=== PATIENT | male | born 1950 | race Caucasian/White ===

== ENCOUNTER 2020-03-24 21:32 | Inpatient (IN) | payer MEDICARE, OTHER, SELFPAY ==
[2020-03-24] VITALS (10 sets, daily range): BP systolic 160–231; BP diastolic 74–130; PULSE 74–112; RESP 17–37; TEMP 36.8; O2SAT 93–100; BMI 26.9
--- NOTE | 2020-03-24 21:44 | ED_ITS ---
HPI - Neuro Symptoms/Deficit General Chief Complaint: Neuro Symptoms/Deficit Stated Complaint: thinks he had a stroke Time Seen by Provider: 03/24/20 21:34 Source: patient and family Mode of arrival: Ambulatory Limitations: no limitations History of Present Illness HPI Narrative: 69M former smoker with history of HTN presents with his and the chief complaint of stroke-like symptoms that started night. He had been in his normal state of health while traveling with his family who noted him to be a bit confused and perhaps dizzy on night. Upon waking on Thursday heaves found to have significant right facial weakness with associated slurring of his words, right arm and right leg weakness. He denies any injury nor history of the same. He denies any fever or chills. Onset (ago): day(s) Timing confirmed by: family member Location: speech, right face, dysarthria, right arm and right leg History of same: No Severity: moderate Quality: weak and constant Relieving factors: none Exacerbating factors: none On Anticoagulants: No Associated symptoms: denies other symptoms Treatments Prior to Arrival: none Related Data Allergies Allergy/AdvReac Type Severity Reaction Status Date / Time No Known Drug Allergies Allergy Verified 03/24/20 22:10 Review of Systems Constitutional Constitutional: Denies chills, Denies fatigue, Denies fever(s), Denies frequent falls, Denies lethargy and Reports weakness Eyes Eyes: Denies change in vision, Denies eye discharge, Denies irritation and Denies loss of vision ENT Ears, Nose, Mouth, and Throat: Denies change in voice, Denies dizziness, Denies neck pain, Denies sore throat and Denies throat swelling Cardiovascular Cardiovascular: Denies chest pain, Denies irregular heart rhythm, Denies lightheadedness, Denies palpitations, Denies dyspnea, Denies dyspnea on exertion and Denies orthopnea Respiratory Respiratory: Denies cough, Denies dyspnea, Denies dyspnea on exertion and Denies wheezing Gastrointestinal Gastrointestinal: Denies abdominal pain, Denies change in bowel habits, Denies diarrhea, Denies nausea and Denies vomiting Musculoskeletal Musculoskeletal: Reports abnormal gait, Denies neck pain and Denies numbness Integumentary/Breasts Skin/Breast: Denies pruritus, Denies erythema, Denies rash and Denies wounds Neurologic Neurologic: Reports abnormal speech, Reports abnormal gait, Denies behavioral changes, Denies confusion, Denies dizziness, Denies frequent falls, Denies loss of vision, Denies numbness and Reports weakness Psychiatric Psychiatric: Denies anxiety, Denies behavioral changes, Denies confusion, Denies depression, Denies homicidal ideation and Denies suicidal ideation Endocrine Endocrine: Denies fatigue, Denies flushing and Denies palpitations Hematologic/Lymphatic Hematologic/Lymphatic: Denies easy bruising Allergic/Immunologic Allergic/Immunologic: Denies urticaria, Denies throat swelling and Denies wheezing Patient History Social History Smoking Status: Former smoker Smoking Status: Former smoker alcohol intake frequency: 0-2 drinks per day Substance Use Type: does not use Exam Narrative Exam Narrative: GENERAL: [69] year old patient appears stated age. Well- nourished, well-developed patient, in mild distress. HEAD: Atraumatic. Normocephalic. EYES: Pupils equal round and reactive. Extraocular motions intact. No scleral icterus. No injection or drainage. ENT: Nose without bleeding, purulent drainage. Throat without erythema, tonsillar hypertrophy or exudate. Airway patent. NECK: Trachea midline. Non tender CARDIOVASCULAR: Regular rate and rhythm without murmurs, gallops, or rubs. RESPIRATORY: Clear to auscultation. Breath sounds equal bilaterally. No wheezes, rales, or rhonchi. GASTROINTESTINAL: Abdomen soft, non-tender, nondistended. EXTREMITIES: No edema or joint tenderness. BACK: Nontender without deformity or crepitance. No flank tenderness. NEURO: AOx3. SKIN: No rash or erythema of visible areas Initial Vital Signs Initial Vital Signs: Vital Signs Temperature 98.2 F 03/24/20 21:40 Pulse Rate 89 03/24/20 21:40 Respiratory Rate 17 03/24/20 21:40 Blood Pressure 178/84 H 03/24/20 21:40 Pulse Oximetry 100 03/24/20 21:40 Scores NIH Stroke Scale Level of Conciousness: Alert, keenly responsive Ask month/age: Answers one question correctly, intubated follow commands Open/close eyes, close hand: Performs both tasks correctly Best gaze horizontal: Normal Visual sethi: No visual loss Facial palsy: Partial paralysis, total or near total paralysis of lower face Left arm drift: No drift for full 10 sec Right arm drift: Drifts down, not to bed Left leg drift: No drift for full 10 sec Right leg drift: Drifts down, not to bed Limb ataxia: Absent Sensory on face/arms/legs: Normal, no sensory loss Best language: Mild to moderate, slurs some words Dysarthria: Mild to mod,some slurring Extinction or inattention: No abnormality Total NIH Stroke scale score: 7 Course Orders Ordered: ED Orders 03/24/20 21:42 CT head/brain wo con Stat Basic Metabolic Panel Stat Complete Blood Count AUTO DIFF Stat Partial Thromboplastin Time Stat Prothrombin Time INR Stat Urine Drug Screen, Rapid Stat EKG-12 Lead Stat 03/24/20 21:51 Consult to Speech Therapy Evaluate & Treat 03/24/20 22:00 COVID19 -ED/INPAT/OR/L&D Stat Sodium Chloride (Normal Saline 0.9%) 1,000 mls @ 150 mls/hr IV CONT HECTOR Last Admin: 03/24/20 21:57 Dose: 150 mls/hr Documented by: MIRTHA Vital Signs Vital signs: Vital Signs - 8 hr 03/24/20 21:40 Temperature 98.2 F Pulse Rate 89 Respiratory Rate 17 Blood Pressure 178/84 H Pulse Oximetry 100 MDM - Neuro Symptoms/Deficit Lab Data Result diagrams: 03/24/20 21:42 03/24/20 21:42 Labs: Lab Results 03/24/20 03/24/20 03/24/20 Range/Units 21:42 21:42 21:42 WBC 9.9 (4.5-11.0) X10^3/uL RBC 4.98 (4.5-5.9) X10^6/uL Hgb 16.0 (13.5-17.5) g/dL Hct 47.0 (41-53) % MCV 94.3 (80-100) fL MCH 32.2 (26-34) PG MCHC 34.2 (30-36) % RDW 13.4 (11.6-14.8) % Plt Count 281 (150-400) X10^3/uL Neut % (Auto) 55.4 (50-75) % Lymph % (Auto) 35.8 (25-40) % [place] % (Auto) 7.1 (3-14) % Eos % (Auto) 1.1 L (2-4) % Baso % (Auto) 0.6 (0-2) % Neut # (Auto) 5500 (7609-3580) /uL Lymph # (Auto) 3500 (4731-9051) /uL [place] # (Auto) 700 (0-900) /uL Eos # (Auto) 100 (0-450) /uL Baso # (Auto) 100 (0-100) /uL PT 10.9 (10.1-12.7) SECONDS INR 1.0 (0.9-1.3) APTT 30 (26.4-36.2) SECONDS Sodium 137 (137-145) mmol/L Potassium 3.9 (3.4-5.1) mmol/L Chloride 102 (98-107) mmol/L Carbon Dioxide 30 (22-32) mmol/L BUN 22 H (9-20) mg/dL Creatinine 1.27 H (0.66-1.25) mg/dL Estimated GFR 56.2 L (>60) mL/min BUN/Creatinine Ratio 17.3 (6-22) Glucose 117 H (80-110) mg/dL Calcium 9.4 (8.4-10.2) mg/dL COVID-19 PCR (Negative) 03/24/20 Range/Units 22:00 WBC (4.5-11.0) X10^3/uL RBC (4.5-5.9) X10^6/uL Hgb (13.5-17.5) g/dL Hct (41-53) % MCV (80-100) fL MCH (26-34) PG MCHC (30-36) % RDW (11.6-14.8) % Plt Count (150-400) X10^3/uL Neut % (Auto) (50-75) % Lymph % (Auto) (25-40) % [place] % (Auto) (3-14) % Eos % (Auto) (2-4) % Baso % (Auto) (0-2) % Neut # (Auto) (3048-9169) /uL Lymph # (Auto) (7514-0114) /uL [place] # (Auto) (0-900) /uL Eos # (Auto) (0-450) /uL Baso # (Auto) (0-100) /uL PT (10.1-12.7) SECONDS INR (0.9-1.3) APTT (26.4-36.2) SECONDS Sodium (137-145) mmol/L Potassium (3.4-5.1) mmol/L Chloride (98-107) mmol/L Carbon Dioxide (22-32) mmol/L BUN (9-20) mg/dL Creatinine (0.66-1.25) mg/dL Estimated GFR (>60) mL/min BUN/Creatinine Ratio (6-22) Glucose (80-110) mg/dL Calcium (8.4-10.2) mg/dL COVID-19 PCR Negative (Negative) Imaging Data CT scan - head: Radiologist's Impression: Coleman Rios 69 M 1950 [address] [address] [address] Scan Report Signed Patient: Coleman Rios SMR#: [id number] : [id number]:[id number] Age/Sex: 69 / MDate of Service: 03/24/20 Loc: ED Accession Number: [id number] Procedure: CT head/brain wo con Ordering Provider: Surinder Barajas D.O. PROCEDURE: CT HEAD/BRAIN WO CON INDICATIONS: stroke, outside TPA window. R face, R arm, R leg TECHNIQUE: Noncontrast 4.5 mm thick angled axial sections acquired from the foramen magnum to the vertex, with coronal and sagittal reformats. For radiation dose reduction, the following was used: automated exposure control, adjustment of mA and/or kV according to patient size. COMPARISON: None. FINDINGS: Image quality: Excellent. CSF spaces: Basal cisterns are patent. No extra-axial fluid collections. The ventricles are symmetric in size and shape. Brain: No intracranial bleeds or masses. There is cerebral volume loss for age, with resultant ventricular and sulcal prominence. There are periventricular and deep white matter chronic small vessel ischemic changes. Remote lacunar infarcts can be seen involving the deep white matter on both sides. There is intracranial internal carotid artery atherosclerosis. Skull and face: Calvarium and visualized facial bones appear intact, without suspicious lesions. Sinuses: Visualized sinuses and mastoids are clear. IMPRESSION: No acute intracranial hemorrhage is seen. No acute intracranial process is seen. Remote bilateral lacunar infarcts are seen. Note: No significant discrepancy from the preliminary report. Dictated by: Xavier Blount M.D. on 03/24/2020 at 21:30 Approved by: Xavier Blount M.D. on 03/24/2020 at 21:31 Discharge Plan Departure Patient Disposition: Admitted as Observation Clinical Impression: Cerebrovascular accident Qualifiers: CVA mechanism: unspecified Qualified Code(s): I63.9 - Cerebral infarction, unspecified
[2020-03-24 21:53] LABS: Add Manual Diff / Slide Review NO; Basophils Absolute Auto 100 /uL (0-100); Basophils Percent Auto 0.6 % (0-2); Eosinophils Absolute Auto 100 /uL (0-450); Eosinophils Percent Auto 1.1 % (2-4); Lymphocytes Absolute Auto 3500 /uL (1100-4500); Lymphocytes Percent Auto 35.8 % (25-40); Mean Corpuscular HGB Conc 34.2 % (30-36); Mean Corpuscular Hemoglobin 32.2 PG (26-34); Mean Corpuscular Volume 94.3 fL (80-100); Monocytes Absolute Auto 700 /uL (0-900); Monocytes Percent Auto 7.1 % (3-14); Neutrophils Absolute Auto 5500 /uL (1500-7000); Neutrophils Percent Auto 55.4 % (50-75); Platelet Count 281 X10^3/uL (150-400); Red Blood Cell Count 4.98 X10^6/uL (4.5-5.9); Red Cell Distribution Width 13.4 % (11.6-14.8); White Blood Cell Count 9.9 X10^3/uL (4.5-11.0)
[2020-03-24] MEDS: SODIUM CHLORIDE 0.9% 1,000 ML 150 ML IV (21:57)
[2020-03-24 22:01] LABS: Prothrombin Time 10.9 SECONDS (10.1-12.7)
[2020-03-24 22:03] LABS: PTT Partial Thromboplastin Tim 30 SECONDS (26.4-36.2)
[2020-03-24 22:05] LABS: BUN Creatinine Ratio 17.3 (6-22); Blood Urea Nitrogen 22 mg/dL (9-20); Calcium 9.4 mg/dL (8.4-10.2); Carbon Dioxide 30 mmol/L (22-32); Chloride 102 mmol/L (98-107); Estimated Glomerular Filt Rate 56.2 mL/min (>60); Glucose 117 mg/dL (80-110); HEMOLYSIS 40 (0-50); Potassium 3.9 mmol/L (3.4-5.1); Sodium 137 mmol/L (137-145)
[2020-03-24 22:30] LABS: COVID19 -Nasal RAPID Negative (Negative)
[2020-03-25] VITALS (9 sets, daily range): BP systolic 144–197; BP diastolic 70–104; PULSE 66–79; RESP 16–24; TEMP 36.2–36.9; O2SAT 93–98; BMI 26.9
--- NOTE | 2020-03-25 01:55 | DI.MRI.S_ITS ---
PROCEDURE: MR STROKE Pre- and post-contrast brain MRI, non-contrast brain MR angiogram, pre- and postcontrast neck MR angiogram INDICATIONS: CVA TECHNIQUE: Brain: Noncontrast axial T1 spin echo, axial T2 fast spin echo, sagittal and axial FLAIR, coronal T2 fast spin echo, axial gradient echo, axial diffusion and ADC through the brain. After the administration of contrast, axial 3D VIBE of the cranial vasculature and brain. Brain MRA: Non-contrast 3-D time of flight MR angiogram, with multiple kfriekh-qemzozlzt-qvojwindry (MIP) reformats performed. Neck MRA: Axial and sagittal TruFISP through the neck. Coronal dynamic MR angiogram during administration of contrast in the arterial and venous phases, with 3-dimenstional jabwjqg-zbnxkcfgi-mcmzynwanl (MIP) reformats constructed from subtraction images. COMPARISON: [facility], CT, CT HEAD/BRAIN WO CON, 03/24/2020, 21:47. FINDINGS: Image quality: Excellent. BRAIN: CSF spaces: Ventricles are normal in size and shape. Basal cisterns are patent. No extra-axial fluid collections. Brain: There is abnormal diffusion weighted hyperintensity seen along the lateral aspect of the left thalamus, as on series 27, image 62, which measures 7 mm. There is associated dark signal seen on the ADC map, as on series 28, image 12. No superimposed hemorrhage is seen. Brain parenchymal volume loss is seen. Moderate to prominent chronic small-cell ischemic changes are seen. Areas of prior lacunar infarctions can be seen. No intracranial bleeds or mass effects. Smith-white matter interface is normal. Brainstem appears normal. Normal intravascular flow voids are present. No abnormal intracranial enhancement. Relatively prominent perivascular spaces are noted. Skull and face: Calvarial marrow signal is normal. Orbits appear normal. Note is made of bilateral lens replacements. Sinuses: Sinuses and mastoids are clear. Mild leftward nasal septal deviation is seen. BRAIN MR ANGIOGRAM: Anterior circulation: Intracranial internal carotid arteries are normal in size and enhancement. The flow within the paired anterior cerebral arteries is normal and symmetric. The flow within the middle cerebral arteries is normal and symmetric. The anterior communicating artery is seen. No stenoses, occlusions, or aneurysms. Posterior circulation: The visualized portions of the vertebral arteries demonstrate normal caliber, and join to form a normal appearing basilar artery. The flow within the posterior cerebral arteries is normal and symmetric. The right V4 segment demonstrates signal dropout. However, this area appears within normal limits on the accompanying contrast enhanced MRI angiogram of the neck through the region. No definite stenoses, occlusions, or aneurysms. NECK MR ANGIOGRAM: Carotids: Great vessels demonstrate a conventional anatomy as they arise from the aortic arch. The origins of the common carotid arteries appear patent. The calibers and courses of both common carotid arteries are normal. The bifurcation regions appear normal bilaterally. The internal carotid arteries demonstrate normal course and caliber. Posterior circulation: The origins of the vertebral arteries are irregular and demonstrate approximately 50% narrowing on each side. More superior portions of both vertebral arteries demonstrate normal course and caliber, and join to form a normal appearing basilar artery. Miscellaneous: Subclavian arteries appear patent. Pre-contrast images through the neck show no soft tissue abnormalities. IMPRESSION: BRAIN MRI: There is a 7 mm acute infarction seen involving the lateral aspect of the left thalamus. Note is made of age-appropriate brain parenchymal volume loss and chronic small vessel ischemic changes. Areas of prior lacunar infarctions can be seen. No masses or abnormal enhancement can be seen. BRAIN MR ANGIOGRAM: No significant intracranial arterial abnormality is seen. NECK MR ANGIOGRAM: Approximately 50% narrowing can be seen involving the origins of the vertebral arteries. No additional significant narrowing can be seen within the arteries of the neck. Dictated by: Xavier Blount M.D. on 03/25/2020 at 8:37 Approved by: Xavier Blount M.D. on 03/25/2020 at 8:45
[2020-03-25 02:37] LABS: Hemoglobin A1C% w Est Avg Glu 5.4 % (4.0-6.0)
--- NOTE | 2020-03-25 02:54 | P.HP_ITS ---
History of Present Illness History of Present Illness Date Patient Seen: 03/25/20 Time Patient Seen: 00:30 Date of Onset of Symptoms: 03/22/20 Chief complaint: thinks he had a stroke Narrative: Coleman Rios is a 69-year-old male resident from [facility] with hypertension and hyperlipidemia who was traveling with his and appears that they may have traveled separately. On he arrived and told her that he was feeling dizzy and weak. On Thursday they both noticed that he was unsteady on his feet as well as having speech difficulties. And then on the day that they showed up to the ED he developed right sided arm weakness and numbness. When he was in the emergency department after going through the CT scanner he and his stated that his symptoms started to resolve. Healing now complains of pain and muscle tightness in his right shoulder, difficulty speaking, and being hungry and thirsty. He denies shortness of breath, chest pain, he does endorse having difficulty swallowing all in at this point, denies nausea or vomiting, abdominal pain, dysuria, diarrhea or constipation He is anxious to go home. The patient goes to [facility] in [facility] and sees Dr. Javier. CT of the head indicated remote bilateral lacunar infarcts. The patient's tonight scale was 7 at time of presentation and he was outside of the window anti thrombolytic intervention. He was hypertensive with a blood pressure being as high as 231/130 and currently it is 163/89. He is febrile, heart rate is 71, respiratory rate 16, oxygen saturation 90% on room air, is 72.3 kg with a BMI of 25. CBC within normal limits, sodium 137 potassium of 22 Na estimated GFR 56.2, glucose is 117 on was A1c is 5.4. Calcium is 9.4 magnesium 2.0 and he has COVID-19 negative. Patient History Medical History Essential hypertension (Acute) Hyperlipidemia (Acute) Sequela of lacunar infarction (Acute) Family & Social History Family History Father Myocardial infarction Mother CVA (cerebral vascular accident) Safety & Behavioral: Feels Safe in Current Yes Environment Tobacco & Substance use: Smoking Status Current every day smoker 1 pack per day alcohol intake current alcohol intake frequency several beers per day Substance Use Type does not use Meds Home Medications and Allergies Home Medications Medication Instructions Recorded Confirmed Type albuterol sulfate 2 puff INHALATION QID PRN 03/25/20 03/25/20 History allopurinol 400 mg PO DAILY 03/25/20 03/25/20 History atorvastatin 20 mg PO DAILY 03/25/20 03/25/20 History lisinopril 10 mg PO DAILY 03/25/20 03/25/20 History pantoprazole 40 mg PO DAILY 03/25/20 03/25/20 History umeclidinium [Incruse Ellipta] 1 inh INHALATION DAILY 03/25/20 03/25/20 History Allergies Allergy/AdvReac Type Severity Reaction Status Date / Time No Known Drug Allergies Allergy Verified 03/24/20 22:10 Review of Systems Review of Systems ROS: Yes All systems reviewed with the patient and are negative except as otherwise documented Exam Vital Signs (past 8 hours): - 03/24/20 21:37 03/24/20 21:38 03/24/20 21:40 Temperature 98.2 F Pulse Rate 101 H 103 H 89 Respiratory Rate 17 Blood Pressure 178/89 H 178/84 H Pulse Oximetry 97 97 100 03/24/20 22:00 03/24/20 22:01 03/24/20 22:30 Temperature Pulse Rate 91 H 93 H 86 Respiratory Rate 18 20 24 Blood Pressure 176/92 H 173/84 H Pulse Oximetry 97 98 95 03/24/20 23:00 03/24/20 23:01 03/24/20 23:30 Temperature Pulse Rate 112 H 108 H 75 Respiratory Rate 37 H 32 H 19 Blood Pressure 231/130 H Pulse Oximetry 95 95 93 03/24/20 23:31 03/25/20 00:00 03/25/20 00:30 Temperature Pulse Rate 74 73 76 Respiratory Rate 19 18 24 Blood Pressure 160/74 H 164/77 H 194/90 H Pulse Oximetry 95 93 95 03/25/20 01:00 03/25/20 02:16 Temperature 97.2 F L Pulse Rate 73 71 Respiratory Rate 20 16 Blood Pressure 197/104 H 163/89 H Pulse Oximetry 96 98 Oxygen Delivery Method Room Air Oxygen Flow Rate 0 Narrative Exam Narrative: Gen: Alert, oriented, well-developed 69 y.o. male, a bit restless HEENT: normocephalic, atraumatic, conjunctiva clear, sclera non-icteric, oral mucosa pink and moist Neck: supple, full ROM, no JVD, trachea is midline Resp: Lungs CTA, non-labored breathing CV: RRR, no murmur or rubs Abd: soft, non-tender, normoactive BTs Skin: no lesions or rashes, dry and intact Neuro: Alert and oriented X 4 very dysarthric, but speech is coherent NIH score of 7 Extremities: moves all 4 extremities, is ambulatory, negative Sandie?s sign Psyche: Is very funny and likes to joke, normal mood and affect. Objective Labs Result Diagrams: 03/24/20 21:42 03/24/20 21:42 Labs: Laboratory Results - last 24 hr 03/24/20 03/24/20 03/24/20 21:42 21:42 21:42 WBC 9.9 RBC 4.98 Hgb 16.0 Hct 47.0 MCV 94.3 MCH 32.2 MCHC 34.2 RDW 13.4 Plt Count 281 Neut % (Auto) 55.4 Lymph % (Auto) 35.8 [place] % (Auto) 7.1 Eos % (Auto) 1.1 L Baso % (Auto) 0.6 Neut # (Auto) 5500 Lymph # (Auto) 3500 [place] # (Auto) 700 Eos # (Auto) 100 Baso # (Auto) 100 PT 10.9 INR 1.0 APTT 30 Sodium 137 Potassium 3.9 Chloride 102 Carbon Dioxide 30 BUN 22 H Creatinine 1.27 H Estimated GFR 56.2 L BUN/Creatinine Ratio 17.3 Glucose 117 H Hemoglobin A1c Calcium 9.4 Magnesium COVID-19 PCR 03/24/20 03/24/20 03/24/20 21:42 21:42 22:00 WBC RBC Hgb Hct MCV MCH MCHC RDW Plt Count Neut % (Auto) Lymph % (Auto) [place] % (Auto) Eos % (Auto) Baso % (Auto) Neut # (Auto) Lymph # (Auto) [place] # (Auto) Eos # (Auto) Baso # (Auto) PT INR APTT Sodium Potassium Chloride Carbon Dioxide BUN Creatinine Estimated GFR BUN/Creatinine Ratio Glucose Hemoglobin A1c 5.4 Calcium Magnesium 2.0 COVID-19 PCR Negative Assessment & Plan Assessment & Plan narrative: Coleman Rios is a 69-year-old male who has sustained an acute CVA and is admitted to the inpatient service for further treatment and management. CVA, acute, present on admission -initiate clopidogrel 75 mg p.o. daily and aspirin 81 mg p.o. daily -MR stroke scheduled for today -Complete Echo for today Hypertension, acute with a bp of 231/130, now 163/89, present on admission -Allow for permissive hypertension of 220/110 HR 60 to allow for brain perfusion HLD -Lipid panel, pending -Atorvastatin 40 mg po at bedtime Risk stratification -A1c is 5.4% VTE prophylaxis: Caprini risk score: 7, High Heparin 5000 units bid Consults: none Patient is admitted under inpatient status with expected length of stay greater than 2 midnights due to severity of presenting symptoms, risk of adverse event, and complexity of treatment plan. FEN: , NS at 100 ml/hour, BMP and magnesium in the am. Dispo: Unknown at this tie Code Status: Full code as discussed with patient COVID-19 COVID-19 status: Negative Result date/Date tested (Pos, Neg/Pending): 03/25/20 Scores NIHSS Level of Conciousness: Alert, keenly responsive Ask month/age: Answers both questions correctly. Open/close eyes, close hand: Performs both tasks correctly Best gaze horizontal: Normal Visual sethi: No visual loss Facial palsy: Minor paralysis, flattened nasolabial fold, asymmetry on smiling Left arm drift: No drift for full 10 sec Right arm drift: Drifts down, not to bed Left leg drift: No drift for full 5 sec Right leg drift: Drifts down, not to bed Limb ataxia: Absent Sensory on face/arms/legs: Mild to moderate sensory loss, can tell touch Best language: Severe aphasia, not much is understood, fragmented Dysarthria: Mild to mod,some slurring Extinction or inattention: No abnormality Total NIH Stroke scale score: 7 Quality Stroke Contraindication Not Initiating IV-Tpa: Contraindicated Onset of Symptoms Date: 03/22/20 Symptom Onset Unknown: Yes Contraindication Antithromb by Day Two: Contraindicated Rehab Services Assessed: Rehabilitation therapy VTE Deep Vein Thrombosis/Pulmonary Embolism Present on Admission: No
[2020-03-25] MEDS: SODIUM CHLORIDE 0.9% 1,000 ML 150 ML IV (03:11)
[2020-03-25] MEDS: SODIUM CHLORIDE 0.9% 1,000 ML 100 ML IV ×3 (03:12→17:20)
[2020-03-25 03:23] LABS: Ur Creatinine Normal (Normal); Ur Specific Gravity Normal (Normal); Urine Tetrahydrocannabinol Negative (Negative); Urine pH Normal (Normal)
[2020-03-25 03:24] LABS: UR Morphine/Opiate cutoff 300 Positive (Negative); Urine Amphetamines Negative (Negative); Urine Barbiturates Negative (Negative); Urine Benzodiazepines Negative (Negative); Urine Cocaine Negative (Negative); Urine MDMA Negative (Negative); Urine Methadone Negative (Negative); Urine Methamphetamines Negative (Negative); Urine Oxycodone Negative (Negative); Urine Phencyclidine Negative (Negative); Urine Tricyclic Antidepressant Negative (Negative)
[2020-03-25 04:19] LABS: Troponin I < 0.012 ng/mL (0.01-0.034)
--- NOTE | 2020-03-25 04:24 | PC.NURSE ---
0130- Pt arrived to room 215 from ED via stretcher. A/O x4, at bedside. Confirmed CVA with right sided weakness to forearm and hand squeeze. When pt laughs or opens mouth wide, able to visualize slightly right sided facial droop, with pronounced slurred speech. NIH-3. UA sent to lab. Pt remains NPO until speech eval conducted. LS clear, BT+, Denies SOB nausea and pain at this time. , Catherine will be staying the night. LFA NS @ 150 infusing. 1PA FWW to toilet to void with urinal. Call light in reach and bed alarm on.
[2020-03-25 05:33] LABS: Add Manual Diff / Slide Review NO; Basophils Absolute Auto 100 /uL (0-100); Basophils Percent Auto 0.8 % (0-2); Eosinophils Absolute Auto 100 /uL (0-450); Eosinophils Percent Auto 1.8 % (2-4); Hematocrit 41.4 % (41-53); Lymphocytes Absolute Auto 2400 /uL (1100-4500); Lymphocytes Percent Auto 37.8 % (25-40); Mean Corpuscular HGB Conc 33.9 % (30-36); Mean Corpuscular Hemoglobin 31.9 PG (26-34); Mean Corpuscular Volume 93.9 fL (80-100); Monocytes Absolute Auto 500 /uL (0-900); Monocytes Percent Auto 7.2 % (3-14); Neutrophils Absolute Auto 3300 /uL (1500-7000); Neutrophils Percent Auto 52.4 % (50-75); Platelet Count 238 X10^3/uL (150-400); Red Blood Cell Count 4.41 X10^6/uL (4.5-5.9); Red Cell Distribution Width 13.7 % (11.6-14.8); White Blood Cell Count 6.3 X10^3/uL (4.5-11.0)
[2020-03-25 05:42] LABS: BUN Creatinine Ratio 18.2 (6-22); Blood Urea Nitrogen 18 mg/dL (9-20); Calcium 8.8 mg/dL (8.4-10.2); Carbon Dioxide 27 mmol/L (22-32); Chloride 107 mmol/L (98-107); Cholesterol 140 mg/dL (140-199); Estimated Glomerular Filt Rate > 60.0 mL/min (>60); Glucose 101 mg/dL (80-110); HDL Cholesterol 43 mg/dL (40-60); HEMOLYSIS < 15 (0-50); LDL Cholesterol Calculated 39 mg/dL (<100); Potassium 3.9 mmol/L (3.4-5.1); Sodium 138 mmol/L (137-145); Triglycerides 288 mg/dL (35-150)
[2020-03-25 05:51] LABS: NT-proBNP (BNP-Adult 18+) 102 pg/mL (<125)
[2020-03-25 06:41] LABS: Thyroid Stimulating Hormone 3.43 uIU/mL (0.47-4.68)
[2020-03-25] MEDS: lisinopriL 10 MG TABLET 20 MG PO (09:32)
[2020-03-25] MEDS: CLOPIDOGREL 75 MG TABLET PO (09:32)
[2020-03-25] MEDS: PANTOPRAZOLE 40 MG TABLET PO (09:32)
[2020-03-25] MEDS: ATORVASTATIN 20 MG TABLET 40 MG PO (09:32)
[2020-03-25] MEDS: ASPIRIN EC 81 MG TABLET PO (09:32)
[2020-03-25] MEDS: HEPARIN 5,000 UNIT/ML VIAL 5000 UNIT SUBCUT ×2 (09:33→20:39)
[2020-03-25 11:15] LABS: Troponin I < 0.012 ng/mL (0.01-0.034)
--- NOTE | 2020-03-25 11:39 | CM.DANOTE ---
DCP/Continued: Reviewed chart. Patient is a 69yr old male admitted [facility] with stroke like symptoms. Primary payor is 1)Medicare 2)Commercial Insurance. PCP is Dr. Javier in [place]. Met with patient this AM during provider rounds. Patient reports that he starting feeling dizzy and weak. Patient brought to ED where it was determined that he had CVA. Today, stroke work up in progress. Patient agreeable. Patient reports minor deficits with speech and facial expressions otherwise reports feeling okay. Therapy evaluations pending. Per provider, it is anticipated that patient will not d/c today. Patient agreeable to stay for w/u and plans to return home to [place] once he is discharged. Patient reports that he is not driving himself, family will be providing transport. Patient reports I prior to admit. History of tobacco dependence and medication non-compliance. P: Anticipate home when stable. If outpatient services needed patient would like to follow up in [place], [place]. TRIP [place] Discharge Planning/Care Management Advanced directive, confirm from FAMILY Start: 03/25/20 03:07 Freq: Q24H Status: Active Protocol: Document 03/25/20 03:07 MLA (Rec: 03/25/20 03:10 MLA [id number]) Advance Directive, confirm on record Time 03:10 Person contacted Catherine Huffman received No CM Discharge Assessment Start: 03/25/20 11:35 Freq: Status: Active Protocol: Document 03/25/20 11:35 KJS (Rec: 03/25/20 11:39 KJS [id number]) Discharge Planning Assessment Assigned Ware Dresser [place] Contact Information Catherine Rios (spouse) Advance Directives? No History Provided By Patient,Medical Record Has Patient been admitted in last 30 No days? Prior Living Arrangements House Household Members spouse Type of transporation used prior to Drives own vehicle admit Independent with ADL's Yes Is patient alert and oriented? Yes Caregiver for Another No Barriers to Discharge No Discharge Plan Home Transportation Arrangement Family to provide transport back to [place], [place]. once medically cleared. Whiteboard Updated in Patient Room with Yes name and ext. # of Ware Dresser Review Status In Process Next Review Type Continued Stay Review
--- NOTE | 2020-03-25 11:50 | PC.NURSE ---
Day Shift- Pt A&OX4, pt's Catherine at bedside and was rooming in overnight as they are from out of [facility]. NIH score is 4 during this RN's assessment for slurred speech, and mumbled. Right facial droop and slight drift down to right arm compared to left arm. Pt's Catherine states pt's speech is very slightly better today compared to yesterday. Pt to MRI at 0815 and back at 0915. Pt settled in chair in room, attempted breakfast but did not like the texture consistency of food. Pt did try a bite of cream of wheat and pureed egg. Pt also tolerated all of his honey thick orange juice without difficulty. Pt took his pills one at a time with the thickened juice without difficulty also. Per Dr. Marie, Calf SCD's not needed at this time, pt currently on aspirin, plavix, and heparin. Per Speech-Teresa, pt is to be reminded to double swallow with each swallow. 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 Pt appropriate, uses call light for assist. SBA to BR, slight unsteady gait with initial movement. Denies light-headed or dizziness.
--- NOTE | 2020-03-25 12:12 | DI.ECHO.S_ITS ---
Echocardiogram Report + + :Name: ENID LANDEROS Study Date: 03/25/2020 Height: 67 in : :[facility] Weight: 172 lb : : Gender: Male BSA: 1.9 m2 : :: 1950 Age: 69 yrs BP: 197/104 mmHg: :Reason For Study: CVA : :Ordering Physician: : :SARIKA GREENBERG Performed By: Yara Mendez : :Referring: RITA WYATTP : + + Interpretation Summary The patient was in sinus rhythm with heart rates between 70-76 bpm during the exam. BP: 197/104 mmHg The left ventricle is normal in size and wall thickness. The ejection fraction is estimated to be 60-65%. There is no obvious LV thrombus. The right ventricle is normal in size and function. There is mild tricuspid regurgitation. The right ventricular systolic pressure is estimated to be at least 27 mmHg based on an estimated right atrial pressure of 3 mm Hg. No significant atherosclerotic plaque in the aortic arch. Procedure: A two-dimensional transthoracic echocardiogram with color flow and Doppler was performed. The study quality was technically adequate. There is no prior echocardiogram noted for this patient. The patient was in sinus rhythm with heart rates between 70-76 bpm during the exam. Left Ventricle: The left ventricle is normal in size and wall thickness. There is no thrombus. The ejection fraction is estimated to be 60-65%. There are no focal wall motion abnormalities. Diastolic parameters suggest a relaxation abnormality of the left ventricle, consistent with probable normal filling pressures. Right Ventricle: The right ventricle is normal in size and function. Atria: Both atria are normal in size. There is no Doppler evidence for an interatrial shunt. Mitral Valve: The mitral valve leaflets are slightly calcified. There is trace mitral regurgitation. Aortic Valve: The aortic valve is trileaflet. The aortic valve opens well. There is no aortic valve stenosis. No aortic regurgitation is present. Tricuspid Valve: The tricuspid valve is normal. The right ventricular systolic pressure is estimated to be at least 27 mmHg based on an estimated right atrial pressure of 3 mm Hg. There is mild tricuspid regurgitation. Pulmonic Valve: The pulmonic valve is not well visualized. There is no pulmonic valvular regurgitation. Great Vessels: The aortic root is normal size. The dimensions of the ascending aorta are normal. No significant atherosclerotic plaque in the aortic arch. The IVC is of normal diameter and collapses greater than 50% with a sniff. This suggests a low right atrial pressure of 3 mm Hg. Pericardium/ Pleura There is no pericardial effusion. There is an anterior echo-free space consistent with a fat pad. There is no pleural effusion. MMode/2D Measurements & Calculations LVIDd: 5.0 cm LVOT diam: 2.0 cm LVIDs: 3.7 cm Ao root diam: 3.4 cm FS: 25.6 % Ao Arch Diam (Prox Trans): 2.7 cm EPSS: 1.1 cm IVSd: 0.93 cm LVPWd: 1.0 cm LV vazquez. diameter/BSA (cm/m^2): 2.6 LV sys. diameter/BSA (cm/m^2): 2.0 LA A2 area: 16.6 cm2 RA long axis: 4.5 cm LA A4 area: 14.0 cm2 RA area: 14.0 cm2 LA length (vol): 4.5 cm RA vol: 36.7 ml LA vol: 44.2 ml RA : 19.4 ml/m2 LA vol index: 23.3 ml/m2 IVC diam: 1.3 cm RVD1 (basal): 2.8 cm TAPSE: 2.3 cm Doppler Measurements & Calculations Ao V2 max: 118.1 cm/sec LVOT Max Joe: 90.4 cm/sec Ao V2 mean: 82.2 cm/sec LV V1 max P.3 mmHg Ao max P.6 mmHg LV V1 VTI: 21.0 cm Ao mean P.1 mmHg LENA(I,D): 2.5 cm2 Ao V2 VTI: 26.3 cm LENA(V,D): 2.4 cm2 sev ratio: 0.80 LENA indexed to BSA (cm^2/m^2): 1.3 MV E max joe: 63.9 cm/sec TR max joe: 246.0 cm/sec MV A max joe: 68.4 cm/sec TR max P.4 mmHg MV E/A: 0.93 PA pr(Accel): 32.8 mmHg Med Peak E' Joe: 6.7 cm/sec E/E' med: 9.5 Lat Peak E' Joe: 8.1 cm/sec E/E' lat: 7.9 E/e' average: 8.7 MV dec time: 0.22 sec SV(LVOT): 66.2 ml Reading Physician:01:54 PM
--- NOTE | 2020-03-25 12:18 | ST.IPIE ---
Visit Care Team Role Provider Type Surinder Barajas DO Emergency Provider Physician Referring Provider Specialty: Emergency Medicine Address: [address] [place] [address], [id number] Email: [email or web address] FRED Baron Admit Provider Physician Attending Provider Specialty: Internal Medicine Address: [address] [place] [address], [address] Email: [email or web address] Past Medical History (Last Reviewed 03/25/20 @ 03:08 by FRED Baron) Essential hypertension (Acute Medical) Hyperlipidemia (Acute Medical) Sequela of lacunar infarction (Acute Medical) ST IP Initial Evaluation Report IRRIGATING PUMP OPERATOR Clinical Swallow Evaluation Start: 03/25/20 11:56 Freq: Status: Active Protocol: Document 03/25/20 11:56 MG (Rec: 03/25/20 12:18 MG [id number]) Clinical Swallow Evaluation Session Time Visit Start Date 03/25/20 Visit Start Time 10:58 Visit Stop Time 11:47 Total Visit Minutes 59 Visit Information Visit Number 1 Setting Assessment Location Acute Care Visit Type Note Type Initial evaluation Next Note Type Next Note Type Treatment Note Patient Information Identification Type Name,Wristband History Coleman Rios is a 69-year- old male resident from [facility] with hypertension and hyperlipidemia who was traveling with his and appears that they may have traveled separately. On he arrived and told her that he was feeling dizzy and weak. On Thursday they both noticed that he was unsteady on his feet as well as having speech difficulties. And then on the day that they showed up to the ED he developed right sided arm weakness and numbness. When he was in the emergency department after going through the CT scanner he and his stated that his symptoms started to resolve. He now complains of pain and muscle tightness in his right shoulder, difficulty speaking, and being hungry and thirsty. He denies shortness of breath, chest pain, he does endorse having difficulty swallowing all in at this point, denies nausea or vomiting, abdominal pain, dysuria, diarrhea or constipation He is anxious to go home. CT of the head indicated remote bilateral lacunar infarcts. The patient 's tonight scale was 7 at time of presentation and he was outside of the window anti thrombolytic intervention. Tobacco dependence of one pack per day, chronic, present on admission -patient has not smoked since one day ago, but remains an active smoker -He was counseled on quitting smoking Medication non-compliance -Patient reportedly had not taken his regular blood pressure and statin medications as he was feeling too poorly to take them -Counseled of the importance of taking medications to avoid a more severe stroke in the future. Hx of a bilatera lacunar infarct -requesting records from his PCP Subjective Observations Pt was seen resting in bed upon IRRIGATING PUMP OPERATOR entry. Pt was agreeable to ST evaluation. Noticable slurred speech and R facial droop seen. Speech at times is unintelligible. When pt is prompted to repeat information, he does with more intelligibility. Pt is currently on honey thick liquids with puree solids. Pt reported he does not like his diet. Per nurse, pt did not consume much of his breakfast. Reported by Patient Current Diet Pureed,Honey thick liquids Baseline Feeding Method Independent in self-feeding Objective Assessment Mental Status Alert,Responsive,Cooperative Oral Integrity WFL Dentition Decay Lip Function Moderate impairment Observation of Lips at Rest Right sided weakness/Drooping Pucker Reduced strength,Right sided weakness/drooping Lip Retraction Reduced range of motion,Right sided weakness/Drooping Alternating Pucker/Lip Retraction Incoordination Tongue Function Moderate impairment Observations of Tongue at Rest Within normal limits Tongue Protrusion Reduced range of motion Tongue Retraction Reduced range of motion, Reduced strength Tongue Lateralization Reduced range of motion, Reduced strength Jaw Function Within normal limits Observations of Jaw at Rest Within normal limits Jaw Opening Within normal limits Jaw Closing Within normal limits Jaw Lateralization Reduced range of motion Jaw Protrusion Reduced range of motion Hard/Soft Palate Function Within normal limits Observations of Hard/Soft Palate Within normal limits Nasality Within normal limits Comment Formal OME indicates greatest weakness with his lips and tongue secondary to his R facial weakness. Food and Liquid Trials Position During Assessment Upright (90 degrees) Liquids Trialed Ice chips,Thin,Plum [place] Solids Trialed Puree,Dysphagia Mechanical, Dysphagia Advanced Administration Type Tea spoon,Cup single sip,Straw ,Self-feeding Oral Impairment Moderately impaired Oral Phase Comments Pt's mastication time appeared slightly reduced at this time . Poor dentition noted and facial weakness may be contributing factors. Pt appeared to thouroughly masticate solid food prior to the initiation of the swallow. Anterior spillage was noted on trials of liquids due to poor lip seal. Pharyngeal Impairment Mildly impaired Pharyngeal Phase Comments On trials of cup sip of thin liquid, pt cleared throat but with and without strategies (i .e., chin tuck, double swallow ). On nectar thick liquid, when pt implemented a double swallow, no overt s/sx of aspiration noted. No wet/ gurgly voice or throat clear was heard. On puree and dysphagia mechanical trials with a double swallow, pt did not demonstrate overt s/sx of aspiration. When pt did not use strategy, a delayed throat clear was heard. IRRIGATING PUMP OPERATOR educated on the importance of using the strategy to safely consumes liquids/solids at this time and pt was in agreement to follow recommendations. Dysphagia advance was trialed with strategies and pt coughed/ throat cleared on all three trials. Fatigue/Endurance Endurance WNL Strategies Attempted Chin tuck,Effortful swallow, Other Findings Swallowing Function Oropharyngeal phase dysphagia Severity of Swallow Impairment Moderately impaired Contributing Factors to Swallow Reduced oral strength/ Impairment coordination/sensation Prognosis Good Based on Comorbidities Comment IRRIGATING PUMP OPERATOR and pt also discussed oral motor exercises to help improve pt's intelligibility with his speech. Pt appeard agreeable for therapy at this time. Impact on Safety and Functioning Risk for aspiration Recommendations Recommended Solids Dysphagia Mechanical Recommended Liquids Plum [place] Safety Precautions/Swallowing Reduce distractions,Remain Recommendations upright (90 degrees) during all oral intake,Small bites and sips when eating,Multiple swallows Medication Recommendations As Tolerated Education Patient/Caregiver Education Described results of evaluation,Patient expressed understanding of evaluation, Patient expressed agreement with goals & treatment plans Goals Short-term Goals Pt will participate in education with IRRIGATING PUMP OPERATOR re: dysarthria, swallowing strategies, and diet modifications Long-term Goals Pt will tolerate least restrictive diet with no overt s/sx of aspiration Pt will follow OMEs in order to improve intelligibility when speaking.
--- NOTE | 2020-03-25 14:45 | PT.IIE ---
Medical History (Last Reviewed 03/25/20 @ 03:08 by FRED Baron) Essential hypertension (Acute) Hyperlipidemia (Acute) Sequela of lacunar infarction (Acute) Physical Therapy Inpatient Evaluation/Re-Eval M1 PT/OT-IP Prior Functional Status Start: 03/25/20 09:17 Freq: NEEDED Status: Active Protocol: Document 03/25/20 14:41 AW (Rec: 03/25/20 15:12 AW [id number]) Medical Review Prior Functional Status Medical History Reviewed Yes Communication Pt is an effective verbal communicator at baseline. Mobility and Gait Independent without assistive device and without meaningful limit. Activities of Daily Living and IADL's Independent. Social History Household Members spouse,family Living Arrangements House Number of Floors (Floors) One Floor Number of Stairs To Enter/Railing? 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 Their grandson, Sagar, also lives with them. M2 PT-IP Current Condition Start: 03/25/20 09:17 Freq: NEEDED Status: Active Protocol: Document 03/25/20 14:41 AW (Rec: 03/25/20 15:12 AW [id number]) Physical Therapy Current Condition Current Condition Evaluation Date 03/25/20 Treatment Diagnosis CVA, R hemiparesis; difficulty in walking Onset Date 03/22/20 M3 PT-IP Subjective Start: 03/25/20 09:17 Freq: NEEDED Status: Active Protocol: Document 03/25/20 14:41 AW (Rec: 03/25/20 15:12 AW [id number]) Subjective Physical Therapy Visit Type Type Initial Evaluation Visit Start Time 14:15 Visit Stop Time 14:40 Total Visit Minutes 25 Notes Pt's is present throughout eval Number of ASSEMBLY MACHINE FEEDER Visits 0 Physical Therapy Visit Comments Patient Comments Pt is willing to work with PT. Patient Goals To return to [place] and participate in rehab there. Therapy Pain Assessment Pain When Pain Assessed During Mobility Pain Present Pain Present Denied Pain M4 PT-IP Mobility and Gait Start: 03/25/20 09:17 Freq: NEEDED Status: Active Protocol: Document 03/25/20 14:41 AW (Rec: 03/25/20 15:12 AW [id number]) PT-Bed Mobility Assessment Rolling Type of Rolling Bilateral Level of Assist Independent Supine to Sit Supine to Sit Independent Scooting Scooting to Edge of Bed Independent PT-Transfer Assessment Sit to and From Stand Sit to and from Stand Standby Assistance,Use of Upper Extremities Equipment Transfer Assistive Device Gait Belt Orthotic/Prosthetic Devices or Brace: No Transfers Transfer Destination Chair Transfer Technique pt ambulated without AD Transfer Ability Level of Assist Standby Assistance Comments Mobility Comments Pt was resting in bed visiting with his when PT arrived . He completed all bed mobility independently and was able to sit EOB with and without UE support during strength assessment. He completed sit to stand SBA due to unsteadiness in initial standing. He stepped away from the bed for static balance assessment before walking in the halls without AD SBA to CGA to correct rightward lean. On return to the room, pt transferred to the chair SBA. He was positioned with call light and all needs in reach. He verbalized agreement to use the call light for all mobility. Gait Assessment Gait Gait Assistance Required: Standby Assistance,Contact Guard Assist Distance (Feet) 150 Assistive Devices Assistive Device Gait Belt Gait Deviations General Gait Pattern Ataxic,Decreased Feet Clearance,Flexed Trunk,Lateral Trunk Lean,Wide Based Gait Factors Limiting Gait Function Factors Limiting Gait Function Decreased Strength, Incoordination,Poor Balance, Poor Safety Awareness Comments Gait Comments Pt required frequent cues to slow down to improve coordination. He required assist and cues to correct rightward lean in gait. No signs of inattention were observed. Stair Climbing Assessment Comments Stair Climbing Comments Not assessed. Pt has no stairs at home. PT-Balance Assessment Sitting Balance and Reactions Static Sitting Balance Ability Normal Dynamic Sitting Balance Ability Good Standing Balance and Reactions Static Standing Balance Ability Good Dynamic Standing Balance Ability Fair Device Used none Balance Tests Single Limb Standing L 5 sec; R <3 sec Romberg WNL EO and EC Tandem Standing unable M5 PT-IP Objective Assessments Start: 03/25/20 09:17 Freq: NEEDED Status: Active Protocol: Document 03/25/20 14:41 AW (Rec: 03/25/20 15:12 AW [id number]) Orientation Orientation/Cognition Level of Alertness Alert Orientation Name,Day of Week,Place, Situation Language Function Ability Garbled Speech,Word Finding Difficulties Safety Awareness Decreased Safety Awareness Memory Description No Deficits Noted Comments Pt was able to recall 3/3 words after 5 minutes. Speech is garbled but pt is able to improve phonation and intelligibility with prompts to slow down. Gross Range of Motion Upper Extremity ROM Assessment Within Functional Limits Lower Extremity ROM Assessment Within Functional Limits Strength Upper Extremity Strength Assessment Right Impaired Shoulder L 4+/5; R 4-/5 Elbow L 4+/5; R 4/5 Hand L 5/5; R 4/5 Lower Extremity Strength Assessment Right Impaired Hip L 4+/5; R 4-/5 Knee L 4+/5; R 4/5 Ankle B 4+/5 Coordination Assessment Gross Coordination Gross Coordination Impaired Assessment Finger to Nose Test Minimal Impairment Pronation/Supination Test Moderate Impairment Heel on Ewing Test Minimal Impairment Coordination Comments Pt missed targets on finger to nose with RUE >2 cm. Sensation Assessment Sensation Gross Sensation Right UE Impaired,Right LE Impaired Proprioception (Position) Impaired Comments Sensation Comments Pt reports grossly normal light touch sensation but has difficulty sensing joint position at R ankle and wrist with eyes closed. Muscle Tone Muscle Tone WNL Yes Comments Muscle Tone Comments Negative clonus at bilateral ankles. Other Assessments Other Other Assessments Occulomotor exam was grossly normal. No nystagmus or aberrant saccades. Right upper visual field possibly impaired but exam was inconsistent. M6 PT-IP Treatment Start: 03/25/20 09:17 Freq: NEEDED Status: Active Protocol: Document 03/25/20 14:41 AW (Rec: 03/25/20 15:12 [id number]) Physical Therapy Treatment Education Education Provided Safety Other Treatments Other Treatment Performed Provided education on role of PT, plan of care, and rehab options. M7 PT-IP Assessment and Plan Start: 03/25/20 09:17 Freq: NEEDED Status: Active Protocol: Document 03/25/20 14:41 AW (Rec: 03/25/20 15:12 AW [id number]) PT Summary Assessment and Plan Potential Rehabilitation Potential Good Status of Condition at Evaluation Evolving Summary Impairments Strength,Balance,Coordination, Sensation,Transfers,Gait Assessment Summary Coleman is an active 69 yo man seen for PT evaluation after being admitted with left CVA. MRI report notes 7 mm acute infarction seen involving the lateral aspect of the left thalamus. He is indpendent in all regards at baseline. On evaluation, speech is garbled but speech content is appropriate. Pt presents with right hemiparesis affecting mobility but pt is able to ambulate with SBA to CGA to correct lateral lean without obvious loss of balance. Pt was advised to use his right side as much as possible, arranging his environment to force right-sided awareness and use. PT discussed rehab options with the pt and his who prefer to rehab in an outpatient setting. Pt may benefit from acute rehab for best functional outcomes but his mobility impairments are also appropriate for outpatient therapy. PT will continue to assess and refine discharge recommendation. Goals Transfer Goal Independent Gait Goal Independent Gait Distance 400 Days to Meet Goals 10 Frequency of Treatment Frequency Of Treatment Once a Day Treatment Plan Physical Therapy Treatment Plan Bed Mobility Training,Transfer Training,Gait Training, Therapeutic Exercise,Balance Retraining,Discharge Planning, Neuromuscular Re-ed, Coordination Retraining Other Recommendations and Next Treatment gait training and balance Focus interventions Recommendations To Nursing Amount of Assist Needed Standby Assistance Discharge Recommendations PT Discharge Recommendations Home with Assistance,Acute Rehab,Outpatient PT Other Discharge Recommendations acute rehab vs home with OP PT Transportation Needs at Discharge Private Vehicle
--- NOTE | 2020-03-25 16:32 | PM.PN.1 ---
Subjective Subjective Date Patient Seen: 03/25/20 Interval history: Brief progress note: Patient seen and examined. Physical exam unchanged. Patient with NIH 4 for dysarthria, slurred speech, right facial droop and right arm drift. MR stroke protocol demonstrated 7 mm acute infarction seen involving the lateral aspect of the left thalamus. Continue to monitor patient closely and previously outlined A&P. Exam Vital Signs (past 8 hours): - 03/25/20 15:25 03/25/20 19:00 Temperature 97.3 F L 97.7 F Pulse Rate 66 79 Respiratory Rate 18 18 Blood Pressure 155/70 H 144/85 H Pulse Oximetry 97 Oxygen Delivery Method Room Air Oxygen Flow Rate 0 Objective Labs Result Diagrams: 03/25/20 05:19 03/25/20 05:19 Labs: Laboratory Results - last 24 hr 03/24/20 03/24/20 03/24/20 21:42 21:42 21:42 WBC 9.9 RBC 4.98 Hgb 16.0 Hct 47.0 MCV 94.3 MCH 32.2 MCHC 34.2 RDW 13.4 Plt Count 281 Neut % (Auto) 55.4 Lymph % (Auto) 35.8 [place] % (Auto) 7.1 Eos % (Auto) 1.1 L Baso % (Auto) 0.6 Neut # (Auto) 5500 Lymph # (Auto) 3500 [place] # (Auto) 700 Eos # (Auto) 100 Baso # (Auto) 100 PT 10.9 INR 1.0 APTT 30 Sodium 137 Potassium 3.9 Chloride 102 Carbon Dioxide 30 BUN 22 H Creatinine 1.27 H Estimated GFR 56.2 L BUN/Creatinine Ratio 17.3 Glucose 117 H Hemoglobin A1c Calcium 9.4 Magnesium Troponin I NT-Pro-B Natriuret Pep Triglycerides Cholesterol LDL Cholesterol, Calc HDL Cholesterol TSH U Opiates 300ng/mL cut Ur Oxycodone Screen Urine Methadone Screen Ur Barbiturates Screen U Tricyclic Antidepress Ur Phencyclidine Scrn Ur Amphetamines Screen U Methamphetamines Scrn Ur MDMA Scrn (Ecstasy) U Benzodiazepines Scrn Urine Cocaine Screen U Marijuana (THC) Screen COVID-19 PCR 03/24/20 03/24/20 03/24/20 21:42 21:42 22:00 WBC RBC Hgb Hct MCV MCH MCHC RDW Plt Count Neut % (Auto) Lymph % (Auto) [place] % (Auto) Eos % (Auto) Baso % (Auto) Neut # (Auto) Lymph # (Auto) [place] # (Auto) Eos # (Auto) Baso # (Auto) PT INR APTT Sodium Potassium Chloride Carbon Dioxide BUN Creatinine Estimated GFR BUN/Creatinine Ratio Glucose Hemoglobin A1c 5.4 Calcium Magnesium 2.0 Troponin I NT-Pro-B Natriuret Pep Triglycerides Cholesterol LDL Cholesterol, Calc HDL Cholesterol TSH U Opiates 300ng/mL cut Ur Oxycodone Screen Urine Methadone Screen Ur Barbiturates Screen U Tricyclic Antidepress Ur Phencyclidine Scrn Ur Amphetamines Screen U Methamphetamines Scrn Ur MDMA Scrn (Ecstasy) U Benzodiazepines Scrn Urine Cocaine Screen U Marijuana (THC) Screen COVID-19 PCR Negative 03/25/20 03/25/20 03/25/20 03:15 03:49 05:19 WBC 6.3 RBC 4.41 L Hgb 14.0 Hct 41.4 MCV 93.9 MCH 31.9 MCHC 33.9 RDW 13.7 Plt Count 238 Neut % (Auto) 52.4 Lymph % (Auto) 37.8 [place] % (Auto) 7.2 Eos % (Auto) 1.8 L Baso % (Auto) 0.8 Neut # (Auto) 3300 Lymph # (Auto) 2400 [place] # (Auto) 500 Eos # (Auto) 100 Baso # (Auto) 100 PT INR APTT Sodium Potassium Chloride Carbon Dioxide BUN Creatinine Estimated GFR BUN/Creatinine Ratio Glucose Hemoglobin A1c Calcium Magnesium Troponin I < 0.012 NT-Pro-B Natriuret Pep Triglycerides Cholesterol LDL Cholesterol, Calc HDL Cholesterol TSH U Opiates 300ng/mL cut Positive H Ur Oxycodone Screen Negative Urine Methadone Screen Negative Ur Barbiturates Screen Negative U Tricyclic Antidepress Negative Ur Phencyclidine Scrn Negative Ur Amphetamines Screen Negative U Methamphetamines Scrn Negative Ur MDMA Scrn (Ecstasy) Negative U Benzodiazepines Scrn Negative Urine Cocaine Screen Negative U Marijuana (THC) Screen Negative COVID-19 PCR 03/25/20 03/25/20 03/25/20 05:19 05:19 10:42 WBC RBC Hgb Hct MCV MCH MCHC RDW Plt Count Neut % (Auto) Lymph % (Auto) [place] % (Auto) Eos % (Auto) Baso % (Auto) Neut # (Auto) Lymph # (Auto) [place] # (Auto) Eos # (Auto) Baso # (Auto) PT INR APTT Sodium 138 Potassium 3.9 Chloride 107 Carbon Dioxide 27 BUN 18 Creatinine 0.99 Estimated GFR > 60.0 BUN/Creatinine Ratio 18.2 Glucose 101 Hemoglobin A1c Calcium 8.8 Magnesium Troponin I < 0.012 NT-Pro-B Natriuret Pep 102 Triglycerides 288 H Cholesterol 140 LDL Cholesterol, Calc 39 HDL Cholesterol 43 TSH 3.43 U Opiates 300ng/mL cut Ur Oxycodone Screen Urine Methadone Screen Ur Barbiturates Screen U Tricyclic Antidepress Ur Phencyclidine Scrn Ur Amphetamines Screen U Methamphetamines Scrn Ur MDMA Scrn (Ecstasy) U Benzodiazepines Scrn Urine Cocaine Screen U Marijuana (THC) Screen COVID-19 PCR Quality Stroke Contraindication Not Initiating IV-Tpa: Contraindicated Onset of Symptoms Date: 03/22/20 Symptom Onset Unknown: Yes Contraindication Antithromb by Day Two: Contraindicated Rehab Services Assessed: Rehabilitation therapy VTE Deep Vein Thrombosis/Pulmonary Embolism Present on Admission: No Scores NIHSS Level of Conciousness: Alert, keenly responsive Ask month/age: Answers both questions correctly. Open/close eyes, close hand: Performs both tasks correctly Best gaze horizontal: Normal Visual sethi: No visual loss Facial palsy: Minor paralysis, flattened nasolabial fold, asymmetry on smiling Left arm drift: No drift for full 10 sec Right arm drift: Drifts down, not to bed Left leg drift: No drift for full 5 sec Right leg drift: No drift for full 5 sec Limb ataxia: Absent Sensory on face/arms/legs: Normal, no sensory loss Best language: Mild to moderate, slurs some words Dysarthria: Mild to mod,some slurring Extinction or inattention: No abnormality Total NIH Stroke scale score: 4
[2020-03-25] MEDS: MELATONIN 3 MG TABLET 6 MG PO (20:40)
[2020-03-26] VITALS: BP 124/81; PULSE 68; RESP 20; TEMP 36.6; O2SAT 98
[2020-03-26] MEDS: ACETAMINOPHEN 325 MG TABLET 650 MG PO (00:57)
[2020-03-26] MEDS: diphenhydrAMINE 25 MG TABLET PO (00:57)
[2020-03-26 05:45] VITALS: BP 142/80; PULSE 68; RESP 18; TEMP 36.8; O2SAT 98
[2020-03-26 07:57] VITALS: BP 153/78; PULSE 67; RESP 16; TEMP 36.7; O2SAT 98
[2020-03-26] MEDS: HEPARIN 5,000 UNIT/ML VIAL 5000 UNIT SUBCUT (08:21)
[2020-03-26] MEDS: ATORVASTATIN 20 MG TABLET 40 MG PO (08:22)
[2020-03-26] MEDS: SODIUM CHLORIDE 0.9% FLUSH 10 ML IV (08:22)
[2020-03-26] MEDS: lisinopriL 10 MG TABLET 20 MG PO (08:22)
[2020-03-26] MEDS: PANTOPRAZOLE 40 MG TABLET PO (08:22)
[2020-03-26] MEDS: CLOPIDOGREL 75 MG TABLET PO (08:22)
[2020-03-26] MEDS: ASPIRIN EC 81 MG TABLET PO (08:22)
[2020-03-26] MEDS: allopurinoL 100 MG TABLET 400 MG PO (08:23)
--- NOTE | 2020-03-26 10:38 | OT.IP.EVAL ---
Current Diagnoses Cerebral infarction, unspecified (03/25/20) Past Medical History (Last Reviewed 03/25/20 @ 03:08 by FRED Baron) Essential hypertension (Acute) Hyperlipidemia (Acute) Sequela of lacunar infarction (Acute) Occupational Therapy Inpatient Evaluation/Re-Eval M1 PT/OT-IP Prior Functional Status Start: 03/25/20 09:17 Freq: NEEDED Status: Active Protocol: Document 03/26/20 12:58 CGR (Rec: 03/26/20 13:09 CGR [email or web address]) Medical Review Prior Functional Status Medical History Reviewed Yes Communication Pt is an effective verbal communicator at baseline. Mobility and Gait Independent without assistive device and without meaningful limit. Activities of Daily Living and IADL's Independent. Social History Household Members spouse,family Living Arrangements House Number of Floors (Floors) One Floor Number of Stairs To Enter/Railing? 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 Their grandson, Sagar, also lives with them. Pt and are here visiting on vacation with family and were suppose to leave for home on . M2 OT-IP Current Condition Start: 03/26/20 12:57 Freq: Status: Active Protocol: Document 03/26/20 12:58 CGR (Rec: 03/26/20 13:09 CGR [email or web address]) Occupational Therapy Current Condition Current Condition Evaluation Date 03/26/20 Treatment Diagnosis CVA with R sided involvement Diagnosis Onset Date 03/25/20 M3 OT- IP Subjective and Pain Start: 03/26/20 12:57 Freq: Status: Active Protocol: Document 03/26/20 12:58 CGR (Rec: 03/26/20 13:09 CGR [email or web address]) OT- Subjective Occupational Therapy Visit Type Type Initial Evaluation Visit Start Time 09:56 Visit Stop Time 10:38 Total Visit Minutes 42 Notes Pt's present throughout OT Pain Assessment Pain When Pain Assessed At Rest Pain Present Pain Present Pain Reported Location Lower Back Intensity 5 Scale Used Numeric (0 - 10) Management Techniques Distraction,Modification of Treatment,Re-positioning M4 OT- IP ADL's Start: 03/26/20 12:57 Freq: Status: Active Protocol: Document 03/26/20 12:58 CGR (Rec: 03/26/20 13:09 CGR [email or web address]) OT [id number] Comments OT Self-Feeding Comments not meal time OT ADL-Grooming General Evaluation Grooming Ability Independent Areas Needing Assistance Face Washing Comments OT Grooming Comments standing at sink OT ADL-Oral Care General Eval Oral Care Ability Independent Areas of Assistance Brushing Teeth Comments Oral Care Comments standing at sink OT ADL-Dressing General Eval Upper Body Dressing Ability Independent Lower Body Dressing Ability Independent Areas Needing Assistance Socks Comments OT Dressing Comments seated in chair OT ADL-Toileting General Evaluation Toileting Ability Independent Comments OT Toileting Comments simulated after just performing with nursing OT ADL-Bathing Comments OT Bathing Comments not performed M5 OT- IP IADL's Start: 03/26/20 12:57 Freq: Status: Active Protocol: Document 03/26/20 12:58 CGR (Rec: 03/26/20 13:09 CGR [email or web address]) OT-Instrumental Activities of Daily Living Deficits IADL Deficits Identified No Deficits Home Safety Awareness Awareness of Need for Assistance at Home Good Awareness Ability to Problem Solve Emergency Able to Problem Solve Situations Medication Management Medication Management No Deficits Identified Money Management Money Management No Deficits Identified Meal Preparation Meal Preparation Caregiver Provides Assist Host Host Caregiver Provides Assist Driving Driving Comments Pt understands that he should not drive till he is cleared by television service engineer. M6 OT- IP Functional Cognition Start: 03/26/20 12:57 Freq: Status: Active Protocol: Document 03/26/20 12:58 CGR (Rec: 03/26/20 13:09 CGR [email or web address]) Cognitive Factors Limiting Selfcare Function Cognitive Ability Level of Alertness Alert Patient Orientation Name,Age,Birthday,Month,Date, Year,Day of Week,Place, Situation Attention Span Ability Capable of Focused Attention, Capable of Sustained Attention Ability to Follow Commands Able to Follow Multi-Step Commands Memory Description No Deficits Noted Safety Awareness No Deficits Noted Problem Solving Ability No deficits Noted OT- Vision and Hearing OT- Hearing Assessment OT- Hearing Assessment WFL OT- Vision Assessment Vision History Cataracts Visual Attentiveness Impaired Occular Pursuits Impaired Horizontal Visual Convergence Impaired Visual Ross WFL Visual Spacial Neglect Right Vision Assessment Comments Noted difficulty crossing midline to right with occular pursuits. M7 OT- IP Mobility and Balance Start: 03/26/20 12:57 Freq: Status: Active Protocol: Document 03/26/20 12:58 CGR (Rec: 03/26/20 13:09 CGR [email or web address]) OT-Transfer Assessment Sit to and From Stand Sit to and from Stand Standby Assistance Transfers Transfer Ability Standby Assistance Technique Transfer Destination Chair,Toilet Transfer Technique Stand Step Pivot Devices Transfer Assistive Devices None Comments Mobility Comments Pt up at sink when OT entered OT- Balance Assessment Sitting Balance and Reactions Static Sitting Balance Ability Normal Dynamic Sitting Balance Ability Good M8 OT- IP Objective Assessments Start: 03/26/20 12:57 Freq: Status: Active Protocol: Document 03/26/20 12:58 CGR (Rec: 03/26/20 13:09 CGR [email or web address]) OT Gross Range of Motion Upper Extremity Range of Motion Assessment Within Functional Limits OT Strength Upper Extremity Strength Assessment Within Functional Limits Comments Strength Comments RUE 4+/5, LUE 5/5 OT- Coordination Assessment Upper Extremity Finger to Nose Test Right UE Impaired Finger Tapping Test Right UE Impaired Comments Coordination Comments Pt demonstrates decreased coordination to the RUE. Educated pt and on different exercises that would help with coordination and performed some exercises while present. OT-Muscle Tone Assessment Muscle Tone WNL Yes OT Sensation Assessment Location Right Light Touch Intact/Normal Deep Pressure Intact/Normal Sensation Description Normal for Patient Edema Edema Absent M9 OT- IP Assessment and Plan Start: 03/26/20 12:57 Freq: Status: Active Protocol: Document 03/26/20 12:58 CGR (Rec: 03/26/20 13:09 CGR [email or web address]) OT Summary Assessment and Plan Potential Rehabilitation Potential Excellent Analytic Complexity at Evaluation Low Summary OT Impairments Strength,Coordination Progress Towards Goals Safe For Discharge Assessment Summary Pt presents as a low complexity evaluation s/p CVA with strength, coordination and visual deficits noted to the R side. Educated pt on exercises to perform and the need to use the R arm/hand and attend to the R side. Pt and state understanding and taking notes for outpatient needs. Pt would benefit from outpatient OT to address RUE deficits and vision. Recommendation is d/c home with outpatient therapy. Frequency of Treatment Frequency Of Treatment Discharge Discharge Recommendations OT Discharge Recommendations Home with Assistance Other Discharge Recommendations outpatient OT services for vision and RUE coordination. Transportation Needs at Discharge Private Vehicle
[2020-03-26 11:15] VITALS: BP 151/81; PULSE 77; RESP 16; TEMP 36.4; O2SAT 98
--- NOTE | 2020-03-26 12:03 | PT.IPTN ---
Current Diagnoses Cerebral infarction, unspecified (03/25/20) Physical Therapy Treatment Note M2 PT-IP Current Condition Start: 03/25/20 09:17 Freq: NEEDED Status: Active Protocol: Document 03/25/20 14:41 AW (Rec: 03/25/20 15:12 AW [id number]) Physical Therapy Current Condition Current Condition Evaluation Date 03/25/20 Treatment Diagnosis CVA, R hemiparesis; difficulty in walking Onset Date 03/22/20 M3 PT-IP Subjective Start: 03/25/20 09:17 Freq: NEEDED Status: Active Protocol: Document 03/26/20 11:41 LJ (Rec: 03/26/20 12:03 LJ [id number]) Subjective Physical Therapy Visit Type Type Treatment Note Visit Start Time 11:41 Visit Stop Time 11:52 Total Visit Minutes 11 Number of [employer] Visits 1 Physical Therapy Visit Comments Patient Comments Pt is willing to work with PT. M4 PT-IP Mobility and Gait Start: 03/25/20 09:17 Freq: NEEDED Status: Active Protocol: Document 03/26/20 11:41 LJ (Rec: 03/26/20 12:03 LJ [email or web address]) PT-Transfer Assessment Sit to and From Stand Sit to and from Stand Standby Assistance,Use of Upper Extremities Equipment Transfer Assistive Device Gait Belt Orthotic/Prosthetic Devices or Brace: No Transfers Transfer Destination Chair Transfer Technique pt ambulated without AD Transfer Ability Level of Assist Standby Assistance Comments Mobility Comments Pt seated in chair with in room. Preparing to leave the hospital. Pt agreed to walk in the hallway prior to departure. Pt stood from the chair pushing off with UEs and ambulated in hallway without LOB or gait deviation ~250' SBA. Returned to chair, sat in controlled manner using UEs and was left in room with all needs in reach. Gait Assessment Gait Gait Assistance Required: Standby Assistance Distance (Feet) 250 Assistive Devices Assistive Device Gait Belt Gait Deviations General Gait Pattern Ataxic,Decreased Feet Clearance,Flexed Trunk,Lateral Trunk Lean,Wide Based Gait Factors Limiting Gait Function Factors Limiting Gait Function Decreased Strength, Incoordination,Poor Balance, Poor Safety Awareness Comments Gait Comments Pt had improved gait this session. He walked at a slower pace and showed good gait mechanics. No rightward lean noted. M5 PT-IP Objective Assessments Start: 03/25/20 09:17 Freq: NEEDED Status: Active Protocol: Document 03/25/20 14:41 AW (Rec: 03/25/20 15:12 AW [id number]) Orientation Orientation/Cognition Level of Alertness Alert Orientation Name,Day of Week,Place, Situation Language Function Ability Garbled Speech,Word Finding Difficulties Safety Awareness Decreased Safety Awareness Memory Description No Deficits Noted Comments Pt was able to recall 3/3 words after 5 minutes. Speech is garbled but pt is able to improve phonation and intelligibility with prompts to slow down. Gross Range of Motion Upper Extremity ROM Assessment Within Functional Limits Lower Extremity ROM Assessment Within Functional Limits Strength Upper Extremity Strength Assessment Right Impaired Shoulder L 4+/5; R 4-/5 Elbow L 4+/5; R 4/5 Hand L 5/5; R 4/5 Lower Extremity Strength Assessment Right Impaired Hip L 4+/5; R 4-/5 Knee L 4+/5; R 4/5 Ankle B 4+/5 Coordination Assessment Gross Coordination Gross Coordination Impaired Assessment Finger to Nose Test Minimal Impairment Pronation/Supination Test Moderate Impairment Heel on Ewing Test Minimal Impairment Coordination Comments Pt missed targets on finger to nose with RUE >2 cm. Sensation Assessment Sensation Gross Sensation Right UE Impaired,Right LE Impaired Proprioception (Position) Impaired Comments Sensation Comments Pt reports grossly normal light touch sensation but has difficulty sensing joint position at R ankle and wrist with eyes closed. Muscle Tone Muscle Tone WNL Yes Comments Muscle Tone Comments Negative clonus at bilateral ankles. Other Assessments Other Other Assessments Occulomotor exam was grossly normal. No nystagmus or aberrant saccades. Right upper visual field possibly impaired but exam was inconsistent. M6 PT-IP Treatment Start: 03/25/20 09:17 Freq: NEEDED Status: Active Protocol: Document 03/26/20 11:41 LJ (Rec: 03/26/20 12:03 LJ [id number]) Physical Therapy Treatment Education Education Provided Safety M7 PT-IP Assessment and Plan Start: 03/25/20 09:17 Freq: NEEDED Status: Active Protocol: Document 03/26/20 11:41 LJ (Rec: 03/26/20 12:03 LJ [id number]) PT Summary Assessment and Plan Potential Rehabilitation Potential Good Status of Condition at Evaluation Evolving Summary Impairments Strength,Balance,Coordination, Sensation,Transfers,Gait Assessment Summary Pt able to ambulate SBA in hallway without lean or LOB. Pt states he feels he is nearly back to his baseline with ambulation. Showed safer pace and attention to obstacles. Speech still somewhat garbled but very understandable. He is safe to return home with assistance. Goals Days to Meet Goals 10 Frequency of Treatment Frequency Of Treatment Once a Day Treatment Plan Physical Therapy Treatment Plan Bed Mobility Training,Transfer Training,Gait Training, Therapeutic Exercise,Balance Retraining,Discharge Planning, Neuromuscular Re-ed, Coordination Retraining Other Recommendations and Next Treatment gait training and balance Focus interventions Recommendations To Nursing Amount of Assist Needed Standby Assistance Discharge Recommendations PT Discharge Recommendations Home with Assistance, Outpatient PT
[2020-03-26 12:45] VITALS: BP 139/73; PULSE 75
[2020-03-26] MEDS: lisinopriL 20 MG TABLET PO (12:45)
--- NOTE | 2020-03-26 13:27 | PM.DS.1 ---
History of Present Illness History of Present Illness Date Patient Seen: 03/25/20 Chief complaint: thinks he had a stroke Narrative: Written by Amisha IBARRA: Coleman Rios is a 69-year-old male resident from [facility] with hypertension and hyperlipidemia who was traveling with his and appears that they may have traveled separately. On he arrived and told her that he was feeling dizzy and weak. On Thursday they both noticed that he was unsteady on his feet as well as having speech difficulties. And then on the day that they showed up to the ED he developed right sided arm weakness and numbness. When he was in the emergency department after going through the CT scanner he and his stated that his symptoms started to resolve. Healing now complains of pain and muscle tightness in his right shoulder, difficulty speaking, and being hungry and thirsty. He denies shortness of breath, chest pain, he does endorse having difficulty swallowing all in at this point, denies nausea or vomiting, abdominal pain, dysuria, diarrhea or constipation He is anxious to go home. The patient goes to [facility] in [facility] and sees Dr. Javier. CT of the head indicated remote bilateral lacunar infarcts. The patient's tonight scale was 7 at time of presentation and he was outside of the window anti thrombolytic intervention. He was hypertensive with a blood pressure being as high as 231/130 and currently it is 163/89. He is febrile, heart rate is 71, respiratory rate 16, oxygen saturation 90% on room air, is 72.3 kg with a BMI of 25. CBC within normal limits, sodium 137 potassium of 22 Na estimated GFR 56.2, glucose is 117 on was A1c is 5.4. Calcium is 9.4 magnesium 2.0 and he has COVID-19 negative. Discharge Providers Provider Date of admission: 03/25/20 00:42 Discharge Date: 03/26/20 Consults: 03/24/20 21:51 Consult to Speech Therapy Evaluate & Treat Comment: Physician Instructions: Evaluate and treat 03/25/20 01:55 Consult to Discharge Planning Routine Comment: Consult to Occupational Therapy Evaluate & Treat Comment: Physician Instructions: Evaluate and treat Consult to Physical Therapy Evaluate & Treat Comment: Physician Instructions: Evaluate and Treat Consult to Speech Therapy Evaluate & Treat Comment: Needs detailed swallow eval Physician Instructions: Evaluate and treat Discharge provider: Maria Esther Marie DO Summary Hospital Course Discharge Diagnosis: 1. Acute left thalamus CVA, present on admission. Improved. 2. Hypertension, acute with a bp of 231/130, now 163/89, present on admission 3. Hyperlipidemia, chronic, present on admission. Stable. 4. Tobacco and alcohol dependence, chronic, present on admission. Active. Hospital Course: Coleman Rios is a 69-year-old male with a past medical history signifcant for hypertension, hyperlipidemia, tobacco and alcohol dependence and alcohol dependence who present ed to the ED with his and the chief complaint of stroke-like symptoms of confusion, dizziness, right facial droop, slurred speech, and right-sided weakness. 1. Acute left thalamus CVA, present on admission. Improved. -Patient presented with confusion, dizziness, right facial droop, slurred speech, and right-sided weakness. -NIH score 7. NIH improved to 4. Continued frequent neurological checks. -CT brain without contrast did not demonstrate any acute intracranial abnormalities. Remote bilateral lacunar infarcts. -MR stroke protocol demonstrated a 7 mm acute infarction seen involving the lateral aspect of the left thalamus. Note is made of age-appropriate brain parenchymal volume loss and chronic small vessel ischemic changes. Areas of prior lacunar infarctions can be seen. No masses or abnormal enhancement. No significant intracranial arterial abnormality is seen. Approximately 50% narrowing can be seen involving the origins of the vertebral arteries. No additional significant narrowing can be seen within the arteries of the neck. -EKG demonstrated normal sinus rhythm with incomplete LBBB and without acute ischemic changes. Continued to monitor on telemetry. Patient remained in sinus rhythm without ectopy. -Allowed for permissive hypertension x 24 hours. Continued home lisinopril increased from 20 mg to 40 mg for better BP control. -Echocardiogram did not demonstrate embolic source or intra-atrial shunt. LV normal in size, wall thickness and function with ejection fraction is estimated to be 60-65%, no obvious LV thrombus, RV normal in size and function, mild tricuspid regurgitation, RVSP is estimated to be at least 27 mmHg based on an estimated right atrial pressure of 3 mmHg, no significant atherosclerotic plaque in the aortic arch. -Continued home aspirin 81 mg daily , started clopidogrel 75 mg daily x 3 weeks, and continued home atorvastatin increased from 10 mg to 40 mg daily at bedtime for stroke prophylaxis. -Risk stratified with hemoglobin A1C normal at 5.4% of and fasting lipid panel which demonstrated fair lipid control with: Total cholesterol 140, Triglycerides 288, LDL 39 (goal < 70) and HDL 43. -Continued physical therapy, occupational therapy and speech therapy evaluation and treatment. Patient discharged home with recommendation for continued aggressive therapy of all disciplines outpatient. 2. Hypertension, acute with a bp of 231/130, now 163/89, present on admission -Allowed for permissive hypertension x 24 hours. Continued home lisinopril increased from 20 mg to 40 mg for better BP control. SBP 140-150's. 3. Hyperlipidemia, chronic, present on admission. Stable. -Fasting lipid panel demonstrated fair lipid control as above. -Continued atorvastatin increased from 10 mg to 40 mg daily at bedtime for stroke prophylaxis. 4. Tobacco and alcohol dependence, chronic, present on admission. Active. -Patient smokes 1 ppd x 40 years. Patient continues to consume alcohol regularly/occasionally. History of alcohol withdrawal and alcohol withdrawal seizures. -Counseled the patient extensively on smoking and alcohol cessation. -Continued nicoderm patch as needed for nicotine withdrawal. Monitored for signs of alcohol withdrawal which the patient did not exhibit throughout hospitalization. -Consulted IN[facility]ED BLOCK OPERATOR and we appreciate her time and resources provided. Exam Vital Signs (past 8 hours): - 03/26/20 05:45 03/26/20 07:57 03/26/20 11:15 Temperature 98.2 F 98.1 F 97.6 F Pulse Rate 68 67 77 Respiratory Rate 18 16 16 Blood Pressure 142/80 H 153/78 H 151/81 H Pulse Oximetry 98 98 98 03/26/20 12:45 Temperature Pulse Rate 75 Respiratory Rate Blood Pressure 139/73 Pulse Oximetry Oxygen Delivery Method Room Air Oxygen Flow Rate 0 Narrative Exam Narrative: General: Middle-aged male sitting in bedside chair and in no acute distress, well-developed, well-nourished, appropriately interactive. HEENT: Normocephalic, atraumatic. External ears without defect. Pupils equal, round, and reactive to light. Anicteric sclerae, moist conjunctivae, and no lid lag. Oropharynx free of erythema and cobble stoning with moist mucosa. Subtle right-sided facial droop. Slurred speech and dysarthria. Neck: Supple with full range of motion. No jugular venous distension. No bruits. No lymphadenopathy or thyromegaly. Cardiovascular: Regular rate and rhythm without murmurs, rubs, or gallops appreciated Pulmonary: Clear to auscultation bilaterally without crackles, wheezes, or rhonchi. Normal respiratory effort with no use of accessory muscles. Abdomen: Soft, bowel sounds present, nontender, nondistended. No hepatosplenomegaly or masses appreciated. Extremities: No clubbing, cyanosis, or edema. Skin: Normal temperature, turgor, and texture; no rash, ulcers, or subcutaneous nodules appreciated. Neurological: Cranial nerves grossly intact. Mild right-sided facial droop with slurred speech and dysarthria. Subtle right-sided weakness +4/5. Otherwise normal muscle strength, tone, and bulk in all other extremities. Reflexes, coordination, and sensory function within normal limits. Psychiatric: Normal mood and affect. Alert and oriented to person, place, and time. Objective Labs Result Diagrams: 03/25/20 05:19 03/25/20 05:19 Discharge Plan Discharge Plan Patient Disposition: Home Discharge comment: You are being discharged home. You have had a a left thalamus stroke. Recommend physical, occupational and speech therapy when you return to [place] to continue to improve your deficits including slurred speech and right-sided weakness. Please follow-up with your primary care doctor, Dr. Javier, regarding her hospitalization and for referral to therapy. You have been prescribed aspirin 81 mg daily, clopidogrel (Plavix) 75 mg daily for 3 weeks and your atorvastatin has been increased from 20 mg to 40 mg daily at bedtime to help prevent future stroke. Your lisinopril has been increased from 20 mg to 40 mg to better control your blood pressure. Please continue to monitor blood pressure closely as you may need additional medications. Recommend low-sodium diet. Highly recommend alcohol and tobacco cessation indefinitely. Recommend sleep study to assess for obstructive sleep apnea and treatment if present. Discharge orders & Medications Prescriptions: New clopidogrel 75 mg Tablet 75 mg PO DAILY Qty: 21 RF: 0 aspirin 81 mg Tablet,Delayed Release (Dr/Ec) 81 mg PO DAILY Qty: 30 RF: 0 atorvastatin 40 mg tablet 40 mg PO BEDTIME Qty: 30 RF: 0 lisinopril 40 mg tablet 40 mg PO DAILY Qty: 30 RF: 0 Continued albuterol sulfate 90 mcg/actuation HFA aerosol inhaler 2 puff INHALATION QID PRN (Reason: Wheezing) RF: 0 allopurinol 100 mg tablet 400 mg PO DAILY RF: 0 pantoprazole 40 mg tablet,delayed release (DR/EC) 40 mg PO DAILY RF: 0 Incruse Ellipta 62.5 mcg/actuation blister with device 1 inh INHALATION DAILY RF: 0 Diet/Activity/Treatments Diet: Diet as Tolerated, Low-fat, Low-sodium and Low-cholesterol Diet comment: Mechanical soft textures, nectar thick liquids (buy thickener at Pharmacy) Activity: Activity as tolerated Visit Report/Discharge Packet Instructions: Alcohol and Stress: There are Safer Ways to [place], The Mediterranean Diet and Good Health, DASH Diet For a Healthy Blood Pressure, Smoking Cessation for Older Adults: It's Not Too Late!, Heart-Healthy Diet, DI for Stroke-Ischemic, DI for Polysomnography, How to Prevent Falls, DI for Obstructive Sleep Apnea -- Adult, Mediterranean Diet May Reduce the Risk of Stroke in People with High Risk o Visit Report Forms: Patient Portal/API, Stroke Signs & Symptoms Discharges patient from system. Discharge Date/Time: 03/26/20 14:07 Quality Stroke Contraindication Not Initiating IV-Tpa: Contraindicated Onset of Symptoms Date: 03/22/20 Symptom Onset Unknown: Yes Contraindication Antithromb by Day Two: Contraindicated Rehab Services Assessed: Rehabilitation therapy VTE Deep Vein Thrombosis/Pulmonary Embolism Present on Admission: No
--- NOTE | 2020-03-26 14:02 | PC.NURSE ---
Discharge: IV dc'd intact. Tele dc'd. Reviewed all d/c instructions thoroughly with patient and his . Given green [facility] guidelines, plus hand-outs on [facility] soft diet and nectar thick liquids. Sent with some thickening powder and instructions on how to use. Instructed to buy some at his pharmacy and to thicken liquids this way at least until he follows up with [facility] back in [place]. Instructed to f/u with PCP AMBER and to get referrals from PCP for [facility], PT, OT and sleep study. Reviewed med list and given 4 paper scripts. Instructed re: importance of calling 911 w/ any new onset s/sx stroke (reviewed s/sx). Patient and verbalized appreciation of care and understanding of all instructions, stated no further questions. All personal belongings collected and sent with patient. Wheeled out to private vehicle by this grant writer.
== END 2020-03-26 14:07 | disposition home or self-care (01) | DRG 66 ==
LOC: ED 23:26 → AC 03-25 00:43
PROVIDERS: Admitting Provider Nurse Practitioner Family; Emergency Provider Emergency Medicine; Referring Provider Emergency Medicine; Visit Provider Nurse Practitioner Family
DX: I63.9 Cerebral infarction, unspecified (principal); I10 Essential (primary) hypertension; R47.1 Dysarthria and anarthria; R47.81 Slurred speech; R29.810 Facial weakness; F17.210 Nicotine dependence, cigarettes, uncomplicated; Z91.14 Patient's other noncompliance with medication regimen; E78.5 Hyperlipidemia, unspecified; R29.704 NIHSS score 4; Z11.59 Encounter for screening for other viral diseases
CPT/HCPCS: 36415; 70450; 70548; 70553; 80048; 80061; 80305; 82962; 83036; 83735; 83880; 84443; 84484; 85025; 85610; 85730; 87635; 92610; 93005; 93306; 96360; 96361; 97116; 97161; 97165; 99285; A9270; J1644